=== PATIENT | female | born 1975 ===

== ENCOUNTER 2022-10-23 12:23 | Inpatient (IN) | payer OTHER ==
[~2022-10-23] VITALS: Ht 152.4 cm; Wt 63.5 kg
[2022-10-28] MEDS ORDERED: OMEPRAZOLE40 MG (08:08)
[2022-10-31] MEDS ORDERED: PERCOCET 5-3251 EACH PO (14:33)
[2022-10-31] MEDS ORDERED: INTESTINEX680 M1 PO (14:34)
[2022-10-31] MEDS ORDERED: PEPCID AC20 MG PO (14:34)
[2022-10-31] MEDS ORDERED: LEVSIN/SL0.125 MG SL (14:34)
== END 2022-10-31 15:04 | disposition home or self-care (01) | DRG 331 ==
LOC: SURG 10-28 05:50 → O/R 10-28 05:50 → SURG 10-28 07:15
PROVIDERS: ADMIT Surgery; ATTEND Surgery
PROC: 07BB4ZZ Excision of Mesenteric Lymphatic, Percutaneous Endoscopic Approach (ICD-10-PCS; 2022-10-28)
PROC: 0DTF4ZZ Resection of Right Large Intestine, Percutaneous Endoscopic Approach (ICD-10-PCS; principal; 2022-10-28 07:15)
DX: D12.2 Benign neoplasm of ascending colon (principal); D37.4 Neoplasm of uncertain behavior of colon